=== PATIENT | male | born 1985 | race Caucasian/White ===

== ENCOUNTER 2019-05-16 23:37 | Emergency (ER) | payer SELFPAY ==
[~2019-05-16] VITALS: Ht 182.9 cm; Wt 88.9 kg
[2019-05-16 23:48] VITALS: Ht 182.9 cm; Wt 88.9 kg
[2019-05-17 01:24] VITALS: BP 121/73
== END 2019-05-17 01:24 | disposition home or self-care (01) ==
LOC: ED 23:37
DX: K08.89 Other specified disorders of teeth and supporting structures (principal)